=== PATIENT | female | born 1985 | race Caucasian/White ===

== ENCOUNTER → 2024-03-29 06:51 | Outpatient (CLI) | payer OTHER, SELFPAY ==
--- NOTE | 2024-03-29 06:53 | DI.US.S_ITS ---
PROCEDURE: US PELVIC COMPLETE INDICATIONS: F/U on right ovarian cyst TECHNIQUE: Real-time scanning was performed of the pelvic organs, with image documentation. Additional endovaginal scanning was necessary due to incomplete visualization of the adnexal and endometrial structures by transabdominal scanning. COMPARISON: None available at time of interpretation. FINDINGS: Uterus: Uterus is anteverted and normal in size at 6.9 x 3.7 x 5.3 cm. The myometrium is homogeneous. The endometrium measures 3.3 mm combined thickness. Ovaries: The right ovary measures 2.5 x 2.9 x 2.2 cm, with a calculated ovarian volume of 7.4 cc. The left ovary measures 2.6 x 1.9 x 1.3 cm, with a calculated ovarian volume of 3.1 cc. Complex small right ovarian cyst containing fine low level internal echoes measuring 1.8 cm and with a somewhat crenulated appearance. Less than 12 follicles can be seen in each ovary. No adnexal masses are seen. Other: No pathologic free abdominal or pelvic fluid. IMPRESSION: Complex right ovarian cyst containing fine low level internal echoes measuring up to 1.8 cm. Differential would include hemorrhagic ovarian cyst or endometrioma. Follow-up pelvic ultrasound could demonstrate continued stability. MRI pelvis with IV contrast may be helpful for further characterization. We strive to produce accurate, complete, and clear reports of imaging services. To assist us in improving patient care, this report was composed using standard report templates and voice recognition software. Therefore, it may contain abnormal punctuation, insertions and/or omissions. Occasional wrong-word or sound-alike substitutions may occur. Though we review the report and make efforts to correct it, we do recommend that the report be read carefully in proper context to recognize any text inaccuracies. Dictated by: Niko KEITA Interpreted: Scott Shea MD on 03/29/2024 at 9:15 Transcribed by: TRENT on 03/29/2024 at 9:17 Approved by: Scott Shea M.D. on 03/29/2024 at 23:40
== END ==
PROVIDERS: PCP Internal Medicine; Referring Provider Registered Nurse; Visit Provider Registered Nurse
DX: N83.291 Other ovarian cyst, right side (principal)
CPT/HCPCS: 76830; 76856

== ENCOUNTER → 2025-04-01 14:54 | Outpatient (CLI) | payer OTHER, SELFPAY ==
--- NOTE | 2025-04-01 14:56 | DI.MG.S_ITS ---
MM screening mammo BI: 04/01/2025. BI-RADS: 2 CLINICAL: 40-year old female for bilateral screening mammogram. Tyrer-Cuzick lifetime risk of 9.9%. No personal or first-degree family history of breast cancer. PRIOR EXAMS Baseline. MAMMOGRAPHY TECHNIQUE: 2D and 3D (tomosynthesis) digital mammographic views obtained, with additional images as needed for full coverage. Current study was also evaluated with a Computer Aided Detection (CAD) system. DENSITY B. There are scattered areas of fibroglandular density. MAMMOGRAPHY FINDINGS Right: No suspicious mass, asymmetry, microcalcification, or other abnormality seen. Left: Benign-appearing intramammary lymph node noted on the left. There are no suspicious masses, calcifications, or other findings in the breast. IMPRESSION: Right * No evidence of malignancy. Left * No evidence of malignancy with benign findings. RECOMMENDATIONS Bilateral * Annual screening mammography. OVERALL ASSESSMENT CATEGORY BI-RADS-2: Benign. [employer] recommends annual screening mammography beginning at age 40 for women with average risk of breast cancer. ELECTRONICALLY SIGNED: Masoud Harris M.D. on 04/02/2025 at 06:38:05 AM PT Interpreting Station ID: [id number]
== END ==
LOC: MAMMO 14:55
DX: Z12.31 Encounter for screening mammogram for malignant neoplasm of breast (principal)
CPT/HCPCS: 77063; 77067